=== PATIENT | male | born 1995 | race Caucasian/White ===

== ENCOUNTER 2017-04-30 14:33 | Emergency (ER) | payer OTHER ==
[~2017-04-30] VITALS: Ht 190.5 cm; Wt 81.2 kg
[~2017-04-30 14:33] MED LIST: FLNIN; SERT25TA PO
[2017-04-30 14:42] VITALS: TEMP 37.7; Ht 190.5 cm; Wt 81.2 kg
[2017-04-30 15:24] LABS: URINE APPEARANCE CLEAR (CLEAR); URINE BILIRUBIN NEG (NEG); URINE COLOR YELLOW; URINE NITRITE NEG (NEG); URINE PH 7.5 (4.5-7.5); URINE SPECIFIC GRAVITY 1.024 (1.000-1.030); UROBILINOGEN NEG (NEG)
--- NOTE | 2017-04-30 15:28 | EMERGENCY ROOM VISIT NOTE ---
History Report prepared by Tio: Nish Corona Under the Supervision of: Dr. Grady Oakes M.D. First contact with patient: 14:46 Chief Complaint: TESTICULAR PAIN Stated Complaint: ABD. PAIN, LEFT TESTICLE PAIN History of Present Illness The patient is a 22 year old male who presents to the Emergency Room with complaints of intermittent left testicular pain beginning two days ago. He also complains of abdominal pain. He states that he notices his pain when he is resting, but states that he is pain free while moving. The patient states that his left testicle feels slightly larger than his right, but does not look any larger. He denies any recent trauma. He has no history of similar symptoms. The patient denies any nausea, vomiting, urinary symptoms, or penile discharge. Source of History: patient Onset: Two days ago Position: other (left testicle) Timing: intermittent Associated Symptoms: + abdominal pain, No nausea, No vomiting, No urinary symptoms Note: The patient denies any penile discharge. Review of Systems See HPI for pertinent positives & negatives. A total of 10 systems reviewed and were otherwise negative. Past Medical & Surgical Medical Problems: (1) No Known Active Medical Problems Family History No pertinent family history stated. Social History Smoking Status: Never Smoker Housing Status: lives with family Occupation Status: employed Current/Historical Medications Scheduled Doxycycline Hyclate (Vibramycin), 100 MG PO BID Miscellaneous Medications Fluticasone Propionate (Flonase Nasal [place] *) Sertraline (Zoloft) Allergies Coded Allergies: Latex (Unverified Allergy, Mild, RASH/WELTS/CONTACT, 11/11/10) Uncoded Allergies: NKDA (Allergy, Mild, 07/08/06) Physical Exam Vital Signs Date Time Temp Pulse Resp B/P (MAP) Pulse Ox O2 Delivery O2 Flow Rate FiO2 04/30/17 14:42 37.7 78 20 150/93 98 Room Air Physical Exam GENERAL: Patient is in no acute distress. HEENT: No acute trauma, normocephalic atraumatic, mucous membranes moist, no nasal congestion, no scleral icterus. NECK: No stridor, no adenopathy, no meningismus, trachea is midline. LUNGS: Clear to auscultation bilaterally, no wheeze, no rhonchi, breath sounds equal. HEART: Without murmurs gallops or rubs, regular rate and rhythm. ABDOMEN: Soft, nontender, bowel sounds positive, no hernias, no peritonitis. BACK: No flank discomfort with percussion. : Left epididymis is slightly tender when compared to the right. No scrotal cellulitis. Circumcised. Small bilateral hernias with straining. EXTREMITIES: No cyanosis or edema, full range of motion of all the joints without pain or difficulty, no signs for acute trauma. NEUROLOGIC: Oriented x 3, no acute motor or sensory deficits, no focal weakness. SKIN: No rash, no jaundice, no diaphoresis. Medical Decision & Procedures ER Provider Diagnostic Interpretation: US results as stated below per my review and radiologist interpretation: TESTICULAR ULTRASOUND FINDINGS: The right testis measured 57 x 26 x 36 mm. Left testis measures 58 x 24 x 33 mm. No intratesticular masses are visualized. There is no evidence of testicular torsion. There are no findings to indicate acute epididymitis. There is a tiny left-sided hydrocele. There are tiny epididymal cysts. IMPRESSION: 1. No evidence of intratesticular mass 2. No evidence of testicular torsion Electronically signed by: Jean Rosario M.D. Laboratory Results Test 04/30/17 14:55 Urine Color YELLOW Urine Appearance CLEAR (CLEAR) Urine pH 7.5 (4.5-7.5) Urine Specific [place] 1.024 (1.000-1.030) Urine Protein NEG (NEG) Urine Glucose (UA) NEG (NEG) Urine Ketones NEG (NEG) Urine Occult Blood NEG (NEG) Urine Nitrite NEG (NEG) Urine Bilirubin NEG (NEG) Urine Urobilinogen NEG (NEG) Urine Leukocyte Esterase NEG (NEG) Laboratory results reviewed by me. ED Course 1447: The patient was evaluated in room A3. A complete history and physical exam was performed. 1556: Ordered Vibramycin Cap 100 mg PO. 1600: Ordered Rocephin 500 mg IM. Reevaluated the patient. Discussed results and discharge instructions: he verbalized understanding and agreement. The patient is ready for discharge. Medical Decision The patient is a 22 year old male who presents to the ED with complaints of left testicle pain. Differential diagnoses considered include testicular torsion, epididymitis, hernia, UTI, STD, trauma, and mass. The patient presents to the emergency room with complaints of left testicle and sometimes some left lower quadrant pain. No urinary complaints or penile discharge. No nausea or vomiting or fever. There have been no trauma to the testicle. Left testicle ultrasound does not show evidence for torsion or mass. On exam, the left epididymis was somewhat tender but the testicle itself was minimally tender. There were some small bilateral inguinal hernias but they were not the cause of his trouble today. Urinalysis does not show infection. The patient did not want anything for pain. I think he likely has early epididymitis. He received a dose of IM ceftriaxone and was given oral doxycycline. The doxycycline will be continued as an outpatient. If he has fever, worsening pain or symptoms, he can return. Outpatient family doctor follow-up was suggested. Impression Primary Impression: Testicular pain, left Additional Impression: Epididymitis Scribe Attestation The scribe's documentation has been prepared under my direction and personally reviewed by me in its entirety. I confirm that the note above accurately reflects all work, treatment, procedures, and medical decision making performed by me. Departure Information Dispostion Home / Self-Care Prescriptions Doxycycline Hyclate (VIBRAMYCIN) 100 Mg Cap 100 MG PO BID for 14 Days, #28 CAP Prov: Grady Oakes M.D. 04/30/17 Referrals Facundo Green M.D. (PCP) Forms HOME CARE DOCUMENTATION FORM, IMPORTANT VISIT INFORMATION, WORK / SCHOOL INSTRUCTIONS Patient Instructions My [facility] Enswers Additional Instructions doxycycline 2x per day for 2 weeks jockey underwear for support motrin for pain fluids rest return for fever, if worsening, if not improving Problem Qualifiers
[2017-04-30 15:34] LABS: MANUAL MICROSCOPIC REQUIRED? NO; REVIEW REQ? NO
--- NOTE | 2017-04-30 15:35 | DIAGNOSTIC IMAGING REPORT ---
TESTICULAR ULTRASOUND CLINICAL HISTORY: left testicle pain COMPARISON STUDY: No previous studies for comparison. FINDINGS: The right testis measured 57 x 26 x 36 mm. Left testis measures 58 x 24 x 33 mm. No intratesticular masses are visualized. There is no evidence of testicular torsion. There are no findings to indicate acute epididymitis. There is a tiny left-sided hydrocele. There are tiny epididymal cysts. IMPRESSION: 1. No evidence of intratesticular mass 2. No evidence of testicular torsion Electronically signed by: Jean Rosario M.D. 04/30/2017 3:33 PM Dictated Date/Time: 04/30/2017 3:32 PM
[2017-04-30] MEDS ORDERED: DOXYCYCLINE HYCLATE 100 MG CAP PO STA (15:56)
[2017-04-30] MEDS ORDERED: DOXY100C PO (15:59)
[2017-04-30] MEDS ORDERED: CEFTRIAXONE SOD 350MG/ML 1 GM VIAL IM ONE (16:00)
[2017-04-30 16:12] VITALS: BP 153/53; PULSE 87; O2SAT 97
== END 2017-04-30 16:31 | disposition home or self-care (01) ==
LOC: C.EDB 14:36 → C.EDA 16:31
DX: N45.1 Epididymitis (principal); N50.812 Left testicular pain; R10.9 Unspecified abdominal pain

== ENCOUNTER 2017-05-02 13:56 | Emergency (ER) | payer OTHER ==
[~2017-05-02] VITALS: Ht 190.5 cm; Wt 81.4 kg
[~2017-05-02 13:56] MED LIST changes: +DOXY100C PO
[2017-05-02 14:00] VITALS: TEMP 36.9; Ht 190.5 cm; Wt 81.4 kg
[2017-05-02] MEDS ORDERED: DOXY100C76 PO (14:16)
--- NOTE | 2017-05-02 15:17 | DIAGNOSTIC IMAGING REPORT ---
TESTICULAR ULTRASOUND CLINICAL HISTORY: Right-sided testicular pain COMPARISON STUDY: 04/30/2017 FINDINGS: The right testis measures 60 x 24 x 34 mm pure the left testis measures 59 x 27 x 35 mm. No intratesticular masses are visualized. There is no evidence of testicular torsion. There are tiny epididymal cysts. There is a tiny left-sided hydrocele. IMPRESSION: 1. No change in the prior study 2. No evidence of intratesticular mass 3. No evidence of testicular torsion Electronically signed by: Jean Rosario M.D. 05/02/2017 3:16 PM Dictated Date/Time: 05/02/2017 3:15 PM
[2017-05-02 16:14] VITALS: BP 150/78; PULSE 70; O2SAT 97
--- NOTE | 2017-05-02 16:16 | EMERGENCY ROOM VISIT NOTE ---
History Report prepared by Tio: Lynn Diallo Under the Supervision of: Dr. Larry Pressley D.O. First contact with patient: 14:03 Chief Complaint: TESTICULAR PAIN Stated Complaint: LEFT AND RIGHT TESTICULAR PAIN Nursing Triage Summary: Pt states seen here two days ago for left sided testicular and abd pain, started on doxy. Now also having right testicular pain. History of Present Illness The patient is a 22 year old male who presents to the Emergency Room with complaints of intermittent bilateral testicular pain starting about 4 days ago. 2 days ago, the patient was evaluated for left testicular pain and abdominal pain. He had a negative ultrasound. He was diagnosed with epididymitis. He was prescribed 200 mg Doxycycline a day and was discharged home. He is now also having intermittent achiness in the right testicle. He also complains of intermittent nausea. He denies any vomiting, back pain, testicular discharge, rash, urinary symptoms, or any other complaints. The last time he engaged in sexual activity was about a month ago. Source of History: patient Onset: about 4 days ago Position: other (bilateral testicle) Timing: intermittent Modifying Factors (Relieving): other (200 mg Doxycycline ) Associated Symptoms: + nausea, No vomiting, No back pain, No urinary symptoms, No rash Review of Systems See HPI for pertinent positives & negatives. A total of 6 systems reviewed and were otherwise negative. Past Medical & Surgical Medical Problems: (1) No Known Active Medical Problems Surgical Problems: (1) H/O wisdom tooth extraction (2) History of tonsillectomy Family History Hypertension Seizures Social History Smoking Status: Never Smoker Marital Status: single Housing Status: lives with family Occupation Status: employed Current/Historical Medications Scheduled Doxycycline Monohydrate (Monodox), 100 MG PO BID Sertraline (Zoloft), 25 MG PO QAM Allergies Coded Allergies: Latex (Unverified Allergy, Mild, RASH/WELTS/CONTACT, 05/02/17) Uncoded Allergies: NKDA (Allergy, Mild, 07/08/06) Physical Exam Vital Signs Date Time Temp Pulse Resp B/P (MAP) Pulse Ox O2 Delivery O2 Flow Rate FiO2 05/02/17 14:00 36.9 72 18 143/93 100 Room Air Physical Exam GENERAL: Patient is awake, alert, and in no acute distress. Patient is resting comfortably and showing no signs of anxiety EYES: The conjunctivae are clear. The pupils are round and reactive. EARS, NOSE, MOUTH AND THROAT: The nose is without any evidence of any deformity. Mucous membranes are moist tongue is midline NECK: The neck is nontender and supple. RESPIRATORY: Normal respiratory effort is noted there is no evidence of wheezing rhonchi or rales CARDIOVASCULAR: Regular rate and rhythm noted there no murmurs rubs or gallops normal S1 normal S2 GASTROINTESTINAL: The abdomen is soft. Bowel sounds are present in all quadrants. Abdomen is nontender : Circumcised male genitalia noted. No lesions or rashes noted. Testicles are descended bilaterally. Tenderness over the anterior aspect of the left testicle. MUSCULOSKELETAL/EXTREMITIES: There is no evidence of gross deformity full range of motion is noted in the hips and shoulders SKIN: There is no obvious evidence of any rash. There are no petechiae, pallor or cyanosis noted. NEUROLOGIC: Patient is awake alert and oriented x3 Medical Decision & Procedures ER Provider Diagnostic Interpretation: US results as stated below per my review and radiologist interpretation. TESTICULAR ULTRASOUND CLINICAL HISTORY: Right-sided testicular pain COMPARISON STUDY: 04/30/2017 FINDINGS: The right testis measures 60 x 24 x 34 mm pure the left testis measures 59 x 27 x 35 mm. No intratesticular masses are visualized. There is no evidence of testicular torsion. There are tiny epididymal cysts. There is a tiny left-sided hydrocele. IMPRESSION: 1. No change in the prior study 2. No evidence of intratesticular mass 3. No evidence of testicular torsion Electronically signed by: Jean Rosario M.D. 05/02/2017 3:16 PM Dictated Date/Time: 05/02/2017 3:15 PM ED Course 1403: The patient was evaluated in room C03. A complete history and physical examination were performed. 1606: Upon reevaluation, the patient is resting comfortably. I discussed the results and treatment plan with him. He verbalized agreement of the treatment plan. He was discharged home. Medical Decision Prior records/ancillary studies reviewed. Triage Nursing notes reviewed. The patient's history was concerning for testicular pain. Differential diagnosis: Etiologies such as torsion, mass, infection, hernia, hydrocele, epididymitis, trauma, intra-abdominal process, as well as others were entertained. The patient is a 22-year-old male who presents to the emergency department for testicular pain. He was seen in our facility recently and diagnosed with epididymitis. I agree with this diagnosis at this time but the patient was concerned because he is now having pain on the other side. There is no significant swelling and there was no exam or ultrasound consistent with torsion. Because of the patient's ongoing symptoms I feel he may require a follow-up with a urologist. I reviewed the patient's previous electronic medical records. He was encouraged to rest and avoid any strenuous activity. He was also encouraged to avoid any heavy lifting. He was set up with an appointment with his primary care physician this week and will then require a referral to a urologist if symptoms do not improve. Otherwise he was encouraged to return to emergency department immediately if symptoms change worsen or the need arises. The patient is currently taking an antibiotic and is only been on this antibiotic for a few days. I feel that he could continue taking his antibiotic and I do not feel that this represents a failure of outpatient therapy at this time. [place] Drug Monitoring Program Search Results: patient reviewed within database Blood Pressure Screening Patient's blood pressure: Elevated blood pressure Blood pressure disposition: Elevated BP felt to be situational Impression Primary Impression: Epididymitis Scribe Attestation The scribe's documentation has been prepared under my direction and personally reviewed by me in its entirety. I confirm that the note above accurately reflects all work, treatment, procedures, and medical decision making performed by me. Departure Information Dispostion Home / Self-Care Referrals Facundo Green M.D. (PCP) Forms HOME CARE DOCUMENTATION FORM, IMPORTANT VISIT INFORMATION, WORK / SCHOOL INSTRUCTIONS Patient Instructions My [facility] Additional Instructions Follow-up with urologist as scheduled. Continue using Motrin and Tylenol as directed for pain. Continue using the doxycycline as prescribed. Avoid any strenuous activity or heavy lifting.
== END 2017-05-02 16:16 | disposition home or self-care (01) ==
LOC: C.EDB 13:58 → C.EDC 16:16
DX: N45.1 Epididymitis (principal); Z82.49 Family history of ischemic heart disease and other diseases of the circulatory system; Z82.0 Family history of epilepsy and other diseases of the nervous system